=== PATIENT | female | born 1990 | race Caucasian/White ===

== ENCOUNTER 2017-05-28 15:59 | Emergency (ER) | payer BC, OTHER ==
[~2017-05-28] VITALS: Ht 170.2 cm; Wt 100.0 kg
[2017-05-28 16:03] VITALS: BP 149/94; PULSE 97; RESP 16; TEMP 98.7; O2SAT 100
--- NOTE | 2017-05-28 16:21 | PD ---
HPI Chief Complaint: Injury Time Seen by Provider: 16:13 Travel History International Travel<30 days: No Contact w/Intl Traveler<30days: No Traveled to known affect area: No History of Present Illness HPI 26-year-old female brought in by EMS status post slip and fall with injury to the right lateral ankle. Patient was coming out of the local book store when she slipped and fell [place] injuring her right lateral ankle. Pain is currently 6 out of 10. Patient denies numbness or tingling distally. She denies foot pain on the right. She denies knee or stephens pain. There are no open wounds or abrasions. Patient denies any other injury. She is unable to bear weight on the right foot. She has no known drug allergies. [facility] Past Medical History ?: Not LMP: 05/08/17 Social History Alcohol Use: Yes Tobacco Use: No Substance Use: No Allergies-Medications (Allergen,Severity, Reaction): Coded Allergies: No Known Allergies (Verified Allergy, Unknown, 12/16/03) Reported Meds & Prescriptions Reported Meds & Active Scripts Active Mapap Extra Strength (Acetaminophen) 500 Mg Tab 1,000 Mg PO Q4-6H PRN Ibuprofen 600 Mg Tab 600 Mg PO Q6H PRN Review of Systems Except as stated in HPI: all other systems reviewed are Neg General / Constitutional: No: Fever Eyes: No: Visual changes HENT: No: Headaches Cardiovascular: No: Chest Pain or Discomfort Respiratory: No: Shortness of Breath Gastrointestinal: No: Abdominal Pain Genitourinary: No: Dysuria Musculoskeletal: Positive: Arthralgias, Limited ROM, Pain Skin: No Rash Neurologic: No: Weakness Psychiatric: No: Depression Endocrine: No: Polydipsia Hematologic/Lymphatic: No: Easy Bruising Physical Exam Narrative GENERAL: Patient appears in mild to moderate distress. SKIN: Warm and dry. Normal color. Normal turgor. No ecchymosis. No open wounds or abrasions. HEAD: Atraumatic. Normocephalic. EYES: Pupils equal and round. No scleral icterus. No injection or drainage. ENT: No nasal bleeding or discharge. Mucous membranes pink and moist. Pharynx is clear. Airway is patent. NECK: Trachea midline. Supple and nontender. CARDIOVASCULAR: Regular rate and rhythm. RESPIRATORY: No accessory muscle use. Clear to auscultation. Breath sounds equal bilaterally. MUSCULOSKELETAL: Extremities without clubbing, cyanosis, or edema. No obvious deformities. Patient has pain swelling over the right lateral malleolus. No palpable crepitus. There is no pain with palpation of the right foot. There is no pain with palpation of the proximal right fibula. NEUROLOGICAL: Awake and alert. No obvious cranial nerve deficits. Motor grossly within normal limits. Five out of 5 muscle strength in the arms and legs. Normal speech. PSYCHIATRIC: Appropriate mood and affect; insight and judgment normal. Data Data Last Documented VS Vital Signs Date Time Temp Pulse Resp B/P (MAP) Pulse Ox O2 Delivery O2 Flow Rate FiO2 05/28/17 16:03 98.7 97 16 149/94 (112) 100 Orders Orders Ankle, Complete ([id number]) (05/28/17 16:14) Ice/Cold Pack (05/28/17 16:14) Splint Or Brace Apply/Monitor (05/28/17 16:46) Crutches (05/28/17 16:46) MDM Medical Decision Making Medical Screen Exam Complete: Yes Emergency Medical Condition: Yes Differential Diagnosis Slip and fall. Right ankle sprain. Right ankle fracture. Narrative Course Ice pack is applied to the injured area. X-rays ordered of the right ankle. Patient did not request pain medication at this time. X-ray shows no obvious fracture or dislocation. Patient is placed in an air cast or splint and crutches. Patient is given ibuprofen 600 mg 4 times a day #40. Patient is given Mapap 500 mg 2 tabs every 6 hours when necessary. #80. Patient is to use ice and bear weight as tolerated over the next several weeks. Patient should follow up if symptoms are not improving in the next week to 10 days. Diagnosis Primary Impression: Moderate right ankle sprain Qualified Codes: S93.401A - Sprain of unspecified ligament of right ankle, initial encounter Referrals: Primary Care Physician Patient Instructions: Ankle Sprain (ED), Ankle Sprain Exercises (GEN), Ankle Stirrup Splint (ED), Crutch Instructions (ED), General Instructions Departure Forms: Work Release Special Instructions: Patient is to use ankle splint and crutches until symptoms resolve and the right ankle, or until cleared by primary care physician. Additional Instructions: X-ray shows no obvious fracture or dislocation. Patient is placed in an air cast or splint and crutches. Patient is given ibuprofen 600 mg 4 times a day #40. Patient is given Mapap 500 mg 2 tabs every 6 hours when necessary. #80. Patient is to use ice and bear weight as tolerated over the next several weeks. Patient should follow up if symptoms are not improving in the next week to 10 days. Med/Other Pt SpecificInfo: Prescription(s) given Scripts Acetaminophen (Mapap Extra Strength) 500 Mg Tab 1000 MG PO Q4-6H Y for PAIN, #80 TAB 0 Refills Prov: Horacio Cummings MD 05/28/17 Ibuprofen (Ibuprofen) 600 Mg Tab 600 MG PO Q6H Y for Pain/Inflammation, #40 TAB 0 Refills Prov: Horacio Cummings MD 05/28/17 Disposition: 01 DISCHARGE HOME Condition: Stable Sonu Kinney May 28, 2017 16:20
[2017-05-28] MEDS ORDERED: IBUP-232 PO (16:48)
[2017-05-28] MEDS ORDERED: MAPA500T13 PO (16:48)
--- NOTE | 2017-05-28 16:52 | RADRPT ---
EXAM DATE/TIME: 05/28/2017 16:27 [place] COMPARISON: No previous studies available for comparison. INDICATIONS : Patient rolled ankle laterally. Complains of pain and swelling MEDICAL HISTORY : None. SURGICAL HISTORY : None. ENCOUNTER: Initial ACUITY: 1 day PAIN SCORE: 9/10 LOCATION: Right lateral ankle FINDINGS: No definite fractures, or dislocations are identified. No definite lytic or sclerotic lesion is seen . Calcaneal spur is present at the attachment site of the plantar aponeurosis. CONCLUSION: Unremarkable study except for calcaneal spur. Yakelin Crum MD on May 28, 2017 at 16:50 Board Certified Radiologist. This report was verified electronically.
== END 2017-05-28 17:09 | disposition home or self-care (01) ==
LOC: NEPK 15:59
DX: S93.401A Sprain of unspecified ligament of right ankle, initial encounter (principal); W01.0XXA Fall on same level from slipping, tripping and stumbling without subsequent striking against object, initial encounter
CPT/HCPCS: 29515; 73610; 99283; E0113; L1906